=== PATIENT | female | born 1980 | race Caucasian/White ===

== ENCOUNTER → 2017-10-02 11:16 | Outpatient (CLI) | payer MEDICAID, SELFPAY ==
[2017-10-02 11:40] LABS: Basophils % 0.5 % (0.1-2.0); Eosinophils # 0.1 K/mm3 (0.0-0.4); Eosinophils % 1.4 % (0.1-12.0); Hematocrit 41.4 % (37.0-47.0); Hemoglobin 13.9 g/dL (12.2-16.2); Lymphocytes # 1.5 K/mm3 (0.7-4.5); Lymphocytes % 20.2 K/mm3 (10-50); Mean Corpuscular HGB Conc 33.5 g/dL (31.8-35.4); Mean Corpuscular Hemoglobin 31.1 pg (27.0-31.2); Mean Corpuscular Volume 92.8 fl (81-99); Mean Platelet Volume 8.5 fl (7.4-10.4); Monocytes # 0.4 K/mm3 (0.1-1.0); Monocytes % 4.9 % (1.7-9.3); Neutrophils # 5.4 K/mm3 (1.8-7.8); Platelet Count 258 K/mm3 (142-424); Red Blood Count 4.46 M/mm3 (4.20-5.40); Red Cell Distribution Width 12.7 % (11.5-17.5); White Blood Count 7.4 K/mm3 (4.8-10.8)
[2017-10-02 12:38] LABS: Alanine Aminotransferase 21 U/L (12-78); Albumin Level 3.4 gm/dL (3.4-5.0); Albumin/Globulin Ratio 0.9 (1.1-1.8); Alkaline Phosphatase 63 U/L (46-116); Anion Gap 8.2 mEq/L (5-15); Aspartate Amino Transferase 8 U/L (15-37); Bilirubin,Total 0.3 mg/dL (0.2-1.0); Blood Urea Nitrogen 15 mg/dL (7-18); Carbon Dioxide 30 mmol/L (21.0-32.0); Chloride 104 mmol/L (98-107); Cholesterol 199 mg/dL (140-200); Creatinine,Serum 1.02 mg/dL (0.55-1.02); Estimated Glomerular Filt Rate 62 ml/min (>60); GFR (African American) 75 ML/MIN (>60); Globulin 3.6 gm/dl (1.3-3.2); Glucose 87 mg/dL (74-106); HDL Cholesterol 67 mg/dL (29-89); LDL Cholesterol 112 mg/dL (0-130); Potassium 5.2 mmoL/L (3.5-5.1); Sodium 137 mmol/L (136-145); Triglycerides 100 mg/dL (30-200); VLDL Cholesterol 20 mg/dL (0-40)
== END ==
PROVIDERS: Visit Provider Nurse Practitioner Family
DX: Z00.00 Encounter for general adult medical examination without abnormal findings (principal); D50.9 Iron deficiency anemia, unspecified
CPT/HCPCS: 36415; 80053; 80061; 85025

== ENCOUNTER → 2018-07-30 07:46 | Outpatient (CLI) | payer MEDICAID, SELFPAY ==
--- NOTE | 2018-07-30 07:50 | CA_ITS ---
PROCEDURE: INDICATIONS FOR THE TEST: Chest pain COPD Heart Murmur Tobacco Smoking Palpitations Fatigue Syncope Edema+ Hypertension Diabetes Mellitus Rheumatic Fever SOB ROMERO Obesity Hyperlipidemia Family History HD Additional History PATIENT INFORMATION HEIGHT: 63 WEIGHT:63 GENDER: Female B/P:142/74 2-D/M-MODE INTERPRETATION: 2-D MEASUREMENTS OBSERVED VALUES IN CMS Right Ventricular Dimension (RVDd) 2.1 Interventricular Septum (Thickness)(IVsd) 1.0 Left Ventricular Internal Dimensions(LVIDd) 5.4 Left Ventricular Posterior Wall (Thickness)(LVPWd) 0.9 Aortic Root 2.3 Aortic Cusp Separation 2.1 Left Atrial Dimensions (LAD) 3.5 2D 1. Left atrium is normal size, left ventricle is normal size, there is no concentric left ventricular hypertrophy, visually estimated ejection fraction 55% with no regional wall motion abnormality. 2. The right atrium and right ventricle are normal size and contractility. 3. The aortic, mitral and tricuspid valvular grossly normal. 4. The pulmonic valve is poorly visualized. 5. No significant pericardial effusion noted. DOPPLER INTERROGATION: Doppler interrogation of the aortic, mitral and tricuspid valvular presence of trace mitral and tricuspid regurgitation of no hemodynamic significance, diastolic parameters are within normal range. CONCLUSION: 1.Normal left ventricular size, preserved left ventricular systolic function, visually estimated ejection fraction 55% with no regional wall motion abnormality, diastolic parameters are within normal range. 2. Trace mitral and tricuspid regurgitation 3. No significant pericardial effusion noted.
== END ==
PROVIDERS: PCP Internal Medicine Adolescent Medicine; Visit Provider Nurse Practitioner Family
DX: I34.0 Nonrheumatic mitral (valve) insufficiency (principal); R60.0 Localized edema
CPT/HCPCS: 93306

== ENCOUNTER 2019-07-27 08:00 | Outpatient (RCR) | payer OTHER, SELFPAY ==
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
--- NOTE | 2019-07-09 15:06 | HMH.RHREAS ---
Rehab Reassessment Rehab OP Re-assessment Start: 07/09/19 14:59 Freq: Status: Active Protocol: Document 07/09/19 14:59 IRLANDA (Rec: 07/09/19 15:06 IRLANDA [id number]) Electronically Signed By Theron Norwood, PT 07/09/19 14:59 Rehab Re-assessment Subjective Subjective PT TEMP AT ARRIVAL 98.2F PT REPORTS 1-2/10 NECK PAIN ON VAS, HOWEVER, 'I THOUGHT I WAS ALL FIXED, BUT IT STARTED TO COME BACK A COUPLE DAYS AGO '. Objective Objective Notes CROM: FLX 0-45, EXT 0-45, B SB 0-50, B ROT 0-60 MMT: B UE WFL TTP: L UT 2-3/4, B CERVICAL PARA MM 1-2/4 Assessment Progress Assessment Progressing as Expected Assessment Notes PT WITH IMPROVED CROM Patient goals met STG'S 2/2 LTG'S 04/25 Goals Not Met LTG'S 09/22 Plan Plan PT TO CONT. W/SKILLED P.T. TO MAKE FURTHER IMPROVEMENTS IN CROM, AND TTP TO ALLOW FOR OPTIMAL FUNCTION Frequency of Therapy 2-3X/WK Duration of therapy 3-4 WKS Time and Billing Re-Eval Time 15 Re-Eval Billing Units 1 PHYSICIAN CERTIFICATION: I certify the specified therapy services for [place] are required, authorized, and reviewed every 30 days.
== END 2019-07-27 08:05 | disposition home or self-care (01) ==
LOC: PT 08:00
PROVIDERS: Visit Provider Internal Medicine Adolescent Medicine
DX: M54.2 Cervicalgia (principal); S13.4XXA Sprain of ligaments of cervical spine, initial encounter
CPT/HCPCS: 20560; 97010; 97014; 97035; 97110; 97163; 97164; G0283

== ENCOUNTER → 2019-09-06 11:16 | Outpatient (CLI) | payer OTHER, SELFPAY ==
[2019-09-06 13:47] LABS: Alanine Aminotransferase 13 U/L (12-78); Albumin/Globulin Ratio 1.2 (1.1-1.8); Alkaline Phosphatase 93 U/L (38-126); Anion Gap 12.9 mEq/L (5-15); Aspartate Amino Transferase 15 U/L (14-36); Bilirubin,Total 0.3 mg/dl (0.2-1.3); Blood Urea Nitrogen 13 mg/dl (7-17); Calcium 9.2 mg/dl (8.4-10.2); Carbon Dioxide 28 mmol/L (22.0-30.0); Chloride 103 mmol/L (98-107); Chol/HDL Ratio 3.2 (1-3.5); Cholesterol 236 mg/dl (140-200); Estimated Glomerular Filt Rate 62 ml/min (>60); GFR (African American) 75 ML/MIN (>60); Globulin 3.4 g/dL (1.3-3.2); Glucose 92 mg/dl (74-100); HDL Cholesterol 74 mg/dl (40-60); Potassium 4.9 mmoL/L (3.5-5.1); Sodium 139 mmol/L (136-145); Total Protein,Serum 7.4 g/dl (6.3-8.2); Triglycerides 151 mg/dl (30-150); VLDL Cholesterol 30 mg/dL (0-40)
== END ==
PROVIDERS: Visit Provider Nurse Practitioner Family
DX: Z00.00 Encounter for general adult medical examination without abnormal findings (principal); Z68.42 Body mass index [BMI] 45.0-49.9, adult
CPT/HCPCS: 36415; 80053; 80061

== ENCOUNTER 2019-09-08 17:18 | Emergency (ER) | payer OTHER, SELFPAY ==
[2019-09-08 17:18] VITALS: BP 141/95; PULSE 112; RESP 18; TEMP 36.8; O2SAT 98; BMI 48.3
--- NOTE | 2019-09-08 17:56 | HMH.EDUTC ---
[facility] [place] Disposition Clinical Impression: Nummular eczema Disposition: Home, Self-Care Condition on Discharge: Good Instructions: Contact Dermatitis Additional Instructions: Don't apply the triamcinolone cream to your face or groin area. The Ketoconozole shampoo is for your scalp. Don't start the oral steroids (medrol dose pack) until tomorrow. Follow up with your regular doctor. Follow up with the heel dipper as scheduled. Call and see if you can get the appointment moved closer. GO TO THE ER FOR ANY WORSENING SYMPTOMS OR CONCERNS Prescriptions: methylPREDNISolone [Medrol] 4 mg PO DIRECTED 6 Days #21 tab.ds.pk Transmission Status: Received by [id number] Ketoconazole [Nizoral A-D] 1 applicatio TP WEEKLY 14 Days #1 bottle Transmission Status: Received by [id number] Triamcinolone Acetonide 1 applicatio TP TIDP PRN 7 Days #1 tube PRN Reason: Itching Transmission Status: Received by [id number] Referrals: Dimitri Pal MD [Primary Care Provider] - Time of Disposition: 18:06 Medical Decision Making - Medical Records Medical records reviewed: No: I reviewed the patient's medical records. - Kirk Inquiry Pt receiving controlled substance: No Vital Signs: 09/08/19 17:18 09/08/19 18:11 Temperature 98.2 F 98.2 F Temperature Source Oral Pulse Rate 112 H Pulse Rate [Right Radial] 112 H Respiratory Rate 18 18 Blood Pressure 141/95 H Blood Pressure [Right Arm] 141/95 H Blood Pressure Mean [Right Arm] 110 Blood Pressure Source [Right Arm] Automatic Cuff Blood Pressure Position [Right Arm] Sitting 02 Sat by Pulse Oximetry 98 Oxygen Delivery Method Room Air Orders (Tests/Meds): ED MEDICATIONS Discontinued Medications Generic Name Dose Route Start Last Admin Trade Name Freq PRN Reason Stop Dose Admin Methylprednisolone Sodium Succinate 125 mg 09/08/19 17:56 09/08/19 18:06 Solu-Medrol 125mg/2ml Vial IM 09/08/19 17:57 125 mg ONCE ONE Administration Medical Decision Narrative: After recieving the Solumedrol injection, she had a vagal response. This lasted for approx 20 minutes. her legs were propped up and she returned to normal. She denied any chest pain or shortness of breat. [facility] [place] HPI - General Stated complaint: rash Time Seen by Provider: 09/08/19 17:20 Mode of Arrival: Ambulatory Source of Information: Patient Limitations: No Limitations Description of Symptoms (Recalled from Triage Doc. by RN): PT C/O A RASH THAT HAS WORSENED OVER THE LAST MONTH HEENT Symptoms (Recalled from RN notes): No Resp Symptoms (Recalled from RN notes): No Skin Symptoms (Recalled from RN notes): Yes (RASH) MS Symptoms (Recalled from RN notes): No Functional Status (Recalled from RN notes): N/A - History of Present Illness Provider Complaint: She c/o having a rash on both her legs, upper arms and scalp for the past 1 week apprx. She has saw her pcp and she was prescribed a cream for a fungal infection, but her insurance would not pay for it. She has an appt with dermatology, but it is not until 1 month away. - Related Data Home Medications Medication Instructions Recorded Confirmed escitalopram oxalate 20 mg tablet 20 mg PO ONCE 07/28/17 05/04/19 Previous Rx's Medication Instructions Recorded norgestimate 0.25 mg-ethinyl 1 tab PO ONCE #84 tab 05/04/19 estradiol 35 mcg tablet metronidazole 500 mg tablet 500 mg PO BID #10 tab 06/02/19 Ketoconazole [Nizoral A-D] 1 applicatio TP WEEKLY 14 Days #1 09/08/19 bottle Triamcinolone Acetonide 1 applicatio TP TIDP PRN 7 Days #1 09/08/19 tube methylPREDNISolone [Medrol] 4 mg PO DIRECTED 6 Days #21 09/08/19 tab.ds.pk Allergies Allergy/AdvReac Type Severity Reaction Status Date / Time No Known Allergies Allergy Verified 05/04/19 14:20 - Worker's Comp Is this a Worker's Comp case?: No [facility] History - Hepatitis A Screen Drug use history?: No High risk sexual behaviors?:
[2019-09-08 18:11] VITALS: BP 141/95; PULSE 112; RESP 18; TEMP 36.8; O2SAT 98
--- NOTE | 2019-09-08 18:15 | PC.NURSE ---
PT WAS READY TO BE D/C, SHE BEGAN FEELING FAINT AFTER HER INJECTION. PT REQUESTS TO SIT DOWN IN CHAIR IN ROOM WITH A COOL RAG UNTIL FEELING BETTER. V/S ASSESSED, BP FOUND TO BE SOMEWHAT LOW... 78/49... AFTER SITTING FOR A FEW MINUTES, B/O ISMAEL TO 100/72.
--- NOTE | 2019-09-08 18:40 | PC.NURSE ---
PT STILL SITTING IN CHAIR IN ROOM. PT STATES THAT SHE IS FEELING SOMEWHAT BETTER, BUT STILL A LITTLE LIGHTHEADED. PT TEXTING ON HER PHONE AT THIS TIME.
--- NOTE | 2019-09-08 19:30 | PC.NURSE ---
PT STATES THAT SHE NOW FEELS BETTER TO GO HOME. BP IS 115/94. PT BEING D/C AT THIS TIME.
== END 2019-09-08 19:30 | disposition home or self-care (01) ==
PROVIDERS: Emergency Provider Nurse Practitioner Family; PCP Internal Medicine Adolescent Medicine
DX: L30.0 Nummular dermatitis (principal); F41.8 Other specified anxiety disorders
CPT/HCPCS: 96372; 99201

== ENCOUNTER → 2020-08-25 18:01 | Outpatient (CLI) | payer OTHER, SELFPAY ==
[2020-08-25 18:16] LABS: Basophils % 0.1 % (0.1-2.0); Hematocrit 36.7 % (37.0-47.0); Hemoglobin 11.7 g/dL (12.2-16.2); Lymphocytes # 2.6 K/mm3 (0.7-4.5); Lymphocytes % 29.9 % (10-50); Mean Corpuscular Hemoglobin 24.9 pg (27.0-31.2); Mean Corpuscular Volume 77.7 fl (81-99); Mean Platelet Volume 9.1 fl (7.4-10.4); Monocytes # 0.4 K/mm3 (0.1-1.0); Neutrophils # 5.7 K/mm3 (1.8-7.8); Platelet Count 342 K/mm3 (142-424); Red Blood Count 4.72 M/mm3 (4.20-5.40); Red Cell Distribution Width 14.9 % (11.5-17.5); White Blood Count 8.8 K/mm3 (4.8-10.8)
[2020-08-25 18:23] LABS: Chloride 103 mmol/L (98-107); Potassium 4.3 mmoL/L (3.5-5.1); Sodium 138 mmol/L (136-145)
[2020-08-25 18:25] LABS: Alanine Aminotransferase 13 U/L (12-78); Alkaline Phosphatase 96 U/L (38-126); Aspartate Amino Transferase 22 U/L (14-36); Bilirubin,Total 0.4 mg/dl (0.2-1.3); Blood Urea Nitrogen 16 mg/dl (7-17); Estimated Glomerular Filt Rate 62 ml/min (>60); GFR (African American) 75 ML/MIN (>60)
[2020-08-25 18:26] LABS: Albumin Level 4.4 g/dl (3.5-5.0); Albumin/Globulin Ratio 1.4 (1.1-1.8); Anion Gap 16.3 mEq/L (5-15); Calcium 8.8 mg/dl (8.4-10.2); Carbon Dioxide 23 mmol/L (22.0-30.0); Chol/HDL Ratio 2.8 (1-3.5); Cholesterol 232 mg/dl (140-200); Globulin 3.2 g/dL (1.3-3.2); Glucose 71 mg/dl (74-100); HDL Cholesterol 82 mg/dl (40-60); Total Protein,Serum 7.6 g/dl (6.3-8.2); Triglycerides 155 mg/dl (30-150); VLDL Cholesterol 31 mg/dL (0-40)
[2020-08-25 18:37] LABS: Direct LDL Cholesterol 122.47 mg/dL (100-129)
== END ==
PROVIDERS: Visit Provider Nurse Practitioner Family
DX: Z00.00 Encounter for general adult medical examination without abnormal findings (principal); I10 Essential (primary) hypertension; D50.9 Iron deficiency anemia, unspecified
CPT/HCPCS: 80053; 80061; 85025

== ENCOUNTER → 2021-05-23 16:24 | Outpatient (CLI) | payer OTHER, SELFPAY ==
[2021-05-23 17:41] LABS: Basophils % 0.4 % (0.1-2.0); Hematocrit 31.5 % (37.0-47.0); Hemoglobin 9.6 g/dL (12.2-16.2); Lymphocytes # 2.7 K/mm3 (0.7-4.5); Lymphocytes % 33.9 % (10-50); Mean Corpuscular HGB Conc 30.4 g/dL (31.8-35.4); Mean Corpuscular Hemoglobin 22.8 pg (27.0-31.2); Mean Corpuscular Volume 75.1 fl (81-99); Mean Platelet Volume 8.6 fl (7.4-10.4); Monocytes # 0.5 K/mm3 (0.1-1.0); Monocytes % 6.1 % (1.7-9.3); Neutrophils # 4.8 K/mm3 (1.8-7.8); Neutrophils % 59.6 % (37.0-80.0); Platelet Count 379 K/mm3 (142-424); Red Blood Count 4.19 M/mm3 (4.20-5.40); Red Cell Distribution Width 15.7 % (11.5-17.5); White Blood Count 8.1 K/mm3 (4.8-10.8)
[2021-05-23 18:14] LABS: Alanine Aminotransferase 17 U/L (12-78); Albumin/Globulin Ratio 1.4 (1.1-1.8); Alkaline Phosphatase 71 U/L (38-126); Anion Gap 12.8 mEq/L (5-15); Aspartate Amino Transferase 20 U/L (14-36); Bilirubin,Total 0.3 mg/dl (0.2-1.3); Blood Urea Nitrogen 16 mg/dl (7-17); Calcium 8.7 mg/dl (8.4-10.2); Carbon Dioxide 21 mmol/L (22.0-30.0); Chloride 107 mmol/L (98-107); Chol/HDL Ratio 2.9 (1-3.5); Cholesterol 229 mg/dl (140-200); Estimated Glomerular Filt Rate 80 ml/min (>60); GFR (African American) 97 ML/MIN (>60); Globulin 2.8 g/dL (1.3-3.2); Glucose 96 mg/dl (74-100); HDL Cholesterol 80 mg/dl (40-60); Potassium 4.8 mmoL/L (3.5-5.1); Sodium 136 mmol/L (136-145); Total Protein,Serum 6.8 g/dl (6.3-8.2); Triglycerides 130 mg/dl (30-150); VLDL Cholesterol 26 mg/dL (0-40)
[2021-05-23 18:24] LABS: Direct LDL Cholesterol 106.28 mg/dL (100-129)
[2021-05-23 18:30] LABS: Free Thyroxine Index 2.8 ug/dL (5.93-13.13); T4 (Thyroxine) 9.9 ug/dl (5.53-11.0); Triiodothryronine (T3) Uptake 28 % (23.5-40.5)
[2021-05-23 18:44] LABS: Thyroid Stimulating Hormone 1.34 uIU/mL (0.465-4.68)
[2021-05-23 19:40] LABS: Hemoglobin A1C 5.3 % (4.0-6.0)
== END ==
PROVIDERS: Visit Provider Internal Medicine Adolescent Medicine
DX: Z00.00 Encounter for general adult medical examination without abnormal findings (principal); Z13.1 Encounter for screening for diabetes mellitus; R55 Syncope and collapse
CPT/HCPCS: 36415; 80053; 80061; 83036; 83735; 84436; 84443; 84479; 85025

== ENCOUNTER → 2021-05-29 16:28 | Outpatient (CLI) | payer OTHER, SELFPAY ==
[2021-05-29 17:20] LABS: Hematocrit 30.3 % (37.0-47.0); Hemoglobin 9.4 g/dL (12.2-16.2)
[2021-05-29 17:40] LABS: Iron 22 ug/dL (37-170)
[2021-05-29 17:50] LABS: Total Iron Binding Capacity 444 ug/dL (265-497)
[2021-05-29 18:17] LABS: Ferritin 5.95 ng/ml (6.24-137)
[2021-05-29 18:31] LABS: Vitamin B12 255 pg/mL (239-931)
== END ==
PROVIDERS: Visit Provider Internal Medicine Adolescent Medicine
DX: D64.9 Anemia, unspecified (principal)
CPT/HCPCS: 36415; 82607; 82728; 83540; 83550; 85014; 85018

== ENCOUNTER → 2021-08-15 14:09 | Outpatient (CLI) | payer OTHER, SELFPAY | PROVIDERS: PCP Internal Medicine Adolescent Medicine; Visit Provider Surgery | DX: Z01.812 Encounter for preprocedural laboratory examination (principal); Z20.822 Contact with and (suspected) exposure to COVID-19; Z13.810 Encounter for screening for upper gastrointestinal disorder; Z12.11 Encounter for screening for malignant neoplasm of colon | CPT/HCPCS: C9803; U0003; U0005 ==

== ENCOUNTER 2021-08-17 08:08 | Day surgery (SDC) | payer OTHER, SELFPAY ==
[2021-08-15 13:33] VITALS: BMI 44.2
--- NOTE | 2021-08-17 07:37 | HMH.GSHP ---
HPI HPI: Patient is a 40-year-old female from [place] referred by Dr. Dimitri Pal for EGD and colonoscopy to evaluate anemia. She states that for several months, beginning January, she had developed some near syncopal episodes feeling like she needed to pass out. She also had some shortness of air. She does state that she underwent Hemoccult testing which was negative. She denies any melena or hematochezia. Blood work a few weeks ago revealed a hemoglobin of 9.4 with hematocrit of 30. Iron 22, total iron-binding capacity 444, iron saturation 4.954. Vitamin B12 level 255. She has never had a history of ulcer disease. Never had prior colonoscopy. [facility] History I have reviewed the patient's past medical history: Yes Medical History: Reports:: Anxiety, Depression, Hypertension Denies:: Cancer, Diabetes Mellitus Type 1, Diabetes Mellitus Type 2, Hyperlipidemia, Internal Pacemaker, Migraine, MRSA, Seizures *Have you ever received a pneumonia vaccine?: No *Have you received a flu vaccine this season?: No Other Surgeries: Yes: No Previous Surgery. No: Pacemaker Amputation: No Fractures: No - *Social History Last grade of school completed: High school graduate Smoking Status: Never smoker Alcohol Intake: never Alcohol Intake Frequency:: holidays/special occasions only Substance Use Type: denies use *Occupational Status:: employed Housing: house *Travel in the last 8 weeks: None - Psychiatric History Pschychiatric History:: Reports:: Anxiety, Depression Family Hx:: No significant family history Review of Systems - Review of Systems Review of systems:: pertinent systems reviewed and negative unless documented below Meds Home Medications Medication Instructions Recorded Confirmed Type lisinopril 20 mg tablet 20 mg PO DAILY 12/13/19 06/19/21 History ferrous sulfate 325 mg (65 mg 325 mg PO DAILY tab 06/19/21 06/19/21 History iron) tablet venlafaxine 150 mg 150 mg PO DAILY cap 06/19/21 06/19/21 History capsule,extended release 24 hr Ascorbic Acid [Vitamin C] 100 mg PO DAILY 08/15/21 08/15/21 History [id number]/Sod Sulf,Bicarb,Cl/KCl 240 ml PO ONCE 08/15/21 History [[id number] and Electrolytes Soln] norgestimate-ethinyl estradioL See Rx Instructions .ROUTE .COMPLEX 08/15/21 History [Previfem Tablet] Allergies Allergy/AdvReac Type Severity Reaction Status Date / Time No Known Allergies Allergy Verified 06/19/21 08:57 Exam I & O for Last 24 hours: Intake & Output 08/14/21 08/15/21 08/16/21 08/17/21 11:59 11:59 11:59 11:59 Weight 250 lb - Constitutional no acute distress - *Routine HEENT Exam Head: Present: normocephalic Eye: Present: EOMI, PERRL ENT: Present: mucous membranes moist - *Routine Neck Exam Present: supple. Absent: lymphadenopathy - *Routine Respiratory Exam Present: CTA bilaterally - *Routine Cardiovascular Exam Present: RRR - *Routine Abdominal Exam Present: soft, normoactive bowel sounds. Absent: tenderness - *Routine Rectal Exam Rectal:: deferred - *Routine Genitalia Exam Genitalia:: deferred - *Routine Extremities Exam Absent: cyanosis, clubbing, edema - *Routine Skin Exam Present: warm. Absent: rash - *Routine Neurological Exam Present: alert, oriented X3 Assessment and Plan - Assessment and plan all Dx Assessment and Plan for all problems:: Plan for EGD and colonoscopy to evaluate iron deficiency anemia.
[2021-08-17 08:24] VITALS: BP 147/78; PULSE 62; RESP 18; TEMP 36.7; O2SAT 100
--- NOTE | 2021-08-17 08:26 | P.PN_ITS ---
[facility] Anesthesia Checklist - Patient Identification Patient Identification: Arm Band - Structural Data Admitted From: Home Planned Operative Procedure/s: EGD/Colonoscopy Consent for Planned Operative Procedure(s) Verified: Yes - NPO Status Verified Time NPO: 00:00 - Airway Assessment C-Spine Mobility Assessed: Yes TMJ Mobility Assessed: Yes Dentition: Good Dentition - Neurological Assessment Level of Consciousness: Awake Hx Seizures: No Numbness or tingling in extremities: No - Anesthesia Plan Anesthesia Risk discussed: Yes Anesthesia Plan: Verified ASA Class: II Anesthesia Type: MAC [facility] History I have reviewed the patient's past medical history: Yes Medical History: Reports:: Anxiety, Depression, Hypertension Denies:: Cancer, Diabetes Mellitus Type 1, Diabetes Mellitus Type 2, Hyperlipidemia, Internal Pacemaker, Migraine, MRSA, Seizures *Have you ever received a pneumonia vaccine?: No *Have you received a flu vaccine this season?: No Anesthesia experience/problems:: None Other Surgeries: Yes: No Previous Surgery. No: Pacemaker Amputation: No Fractures: No - *Social History Last grade of school completed: High school graduate Smoking Status: Never smoker Alcohol Intake: never Alcohol Intake Frequency:: holidays/special occasions only Substance Use Type: denies use *Occupational Status:: employed Housing: house *Travel in the last 8 weeks: None - Psychiatric History Pschychiatric History:: Reports:: Anxiety, Depression Family Hx:: No significant family history
[2021-08-17 08:27] LABS: Urine Pregnancy, HCG Qual. Negative (Negative)
[2021-08-17 08:58] VITALS: O2SAT 98
[2021-08-17 09:37] VITALS: BP 115/73; PULSE 57; RESP 16; TEMP 36.8; O2SAT 100
--- NOTE | 2021-08-17 09:37 | HMH.SCOPE ---
- Procedure: Date: 08/17/21 Patient Date of :: 1980 Procedure Performed:: Esophagogastroduodenoscopy with biopsies Total colonoscopy to terminal ileum with polypectomy using biopsy forceps Indications:: Patient is a 41-year-old female from [place] referred by Dr. Dimitri Pal for EGD and colonoscopy to evaluate anemia. She states that for several months, beginning January, she had developed some near syncopal episodes feeling like she needed to pass out. She also had some shortness of air. She does state that she underwent Hemoccult testing which was negative. She denies any melena or hematochezia. Blood work revealed a hemoglobin of 9.4 with hematocrit of 30. Iron 22, total iron-binding capacity 444, iron saturation 4.954. Vitamin B12 level 255. She has never had a history of ulcer disease. Never had prior colonoscopy. Performing Provider:: Dominik Lima MD Referring Provider:: Dimitri Pal MD Sedation:: MAC sedation Procedure:: Patient was taken to endoscopy procedure room. She was positioned in lateral decubitus position. Adequate intravenous sedation was achieved with anesthesia titration propofol. Attention was first turned to upper endoscopy. Olympus endoscope was inserted via the oropharynx. Esophagus was cannulated. Overall esophagus appeared unremarkable. Gastroesophageal junction was encountered at approximately 40 cm from the incisors. Stomach was cannulated and insufflated. Retroflexion revealed no evidence of any appreciable hiatal hernia. There were findings of mild nonerosive diffuse gastropathy. Gastric antral biopsy was obtained for CLOtest for H. pylori. Pylorus was traversed. Duodenum appeared unremarkable. Endoscope was withdrawn into the distal stomach and antral biopsy was obtained for histopathologic analysis. Stomach was desufflated and endoscope was withdrawn. Next tension was turned to colonoscopy. Digital examination was performed which revealed normal sphincter tone. Variable stiffness Olympus colonoscope was inserted via the anus. Is advanced to the cecum. There was some particulate stool within the colon but adequate visualization was achieved with irrigation and suctioning. Ileocecal valve and appendiceal orifice were clearly identified. Colonoscope was advanced a generous distance into the terminal ileum which appeared grossly normal. Colonoscope was withdrawn through the colon with careful surveillance. Irrigation was performed as needed. In the rectosigmoid region there was a tiny diminutive hyperplastic appearing polyp removed with cold biopsy forceps. Retroflexion within the rectum revealed no evidence of any pathologic internal hemorrhoids. Colonoscope was withdrawn. Findings:: Gastroesophageal junction at 40 cm Mild diffuse nonerosive gastropathy Tiny diminutive hyperplastic appearing rectosigmoid polyp Recommendations:: No etiology for GI blood loss to account for iron deficiency anemia on upper endoscopy or colonoscopy. Likely recommend repeating colonoscopy in 5 or 6 years for screening. If GI blood loss etiology continues to be a concern may require small bowel evaluation with capsule endoscopy. Complications:: None immediately apparent Estimated blood obtained (mL): 1
[2021-08-17 09:47] VITALS: BP 122/66; PULSE 57; RESP 16; O2SAT 100
[2021-08-17 09:57] VITALS: BP 127/80; PULSE 53; RESP 16; O2SAT 100
[2021-08-17 10:07] VITALS: BP 136/78; PULSE 55; RESP 16; O2SAT 100
== END 2021-08-17 10:07 | disposition home or self-care (01) ==
LOC: OUTP 08:09
PROVIDERS: PCP Internal Medicine Adolescent Medicine; Visit Provider Surgery
PROC: 0DJ08ZZ Inspection of Upper Intestinal Tract, Via Natural or Artificial Opening Endoscopic (ICD-10-PCS; CPT 43235; principal; 2021-08-17 09:30)
DX: D64.9 Anemia, unspecified (principal); R55 Syncope and collapse; R06.02 Shortness of breath; D12.7 Benign neoplasm of rectosigmoid junction; K29.60 Other gastritis without bleeding
CPT/HCPCS: 45380; 43239; 81025; 87339

== ENCOUNTER 2022-06-29 12:29 | Emergency (ER) | payer OTHER, SELFPAY ==
[2022-06-29 12:35] VITALS: BP 162/90; PULSE 70; RESP 20; TEMP 36.6; O2SAT 99; BMI 40.9
--- NOTE | 2022-06-29 12:44 | EXP.UTC ---
Discharge Plan Disposition Patient Disposition: Home, Self-Care Condition: Good Prescriptions Prescriptions: New doxycycline hyclate 100 mg capsule 100 mg PO BID 10 Days Qty: 20 0RF No Action lisinopril 20 mg tablet 20 mg PO DAILY venlafaxine 150 mg capsule,extended release 24hr 150 mg PO DAILY ferrous sulfate 325 mg (65 mg iron) tablet 325 mg PO DAILY norgestimate-ethinyl estradiol 1 EACH tablet See Rx Instructions .Route .COMPLEX Rx Instructions: TAKE 1 TABLET BY MOUTH EVERY DAY Referrals Follow up/Referrals: Dimitri Pal MD [Primary Care Provider] - See instructions Clinical Impressions Clinical Impression: Sinusitis, acute, maxillary Discharge ED [place]e Estrada [facility] [place] General Stated complaint: Congestion, drainage, sinus pressure Time Seen by Provider: 06/29/22 12:42 History of Present Illness Provider Complaint: Pt states that for the last 2 weeks she has been struggling with sinus pressure, pain, and yellow-green drainage. She states that she has had a strong dry cough. She states that she has taken some Claritin but that it has not resolved her symptoms. Related Data Home Medications Medication Instructions Recorded Confirmed lisinopril 20 mg tablet 20 mg PO DAILY Hypertension 12/13/19 06/29/22 ferrous sulfate 325 mg (65 mg 325 mg PO DAILY Supplement 06/19/21 06/29/22 iron) tablet venlafaxine 150 mg 150 mg PO DAILY Anxiety 06/19/21 06/29/22 capsule,extended release 24 hr norgestimate 0.25 mg-ethinyl See Rx Instructions .Route 08/15/21 06/29/22 estradiol 35 mcg tablet .COMPLEX control Previous Rx's Medication Instructions Recorded doxycycline hyclate 100 mg capsule 100 mg PO BID 10 days #20 caps 06/29/22 Allergies Allergy/AdvReac Type Severity Reaction Status Date / Time No Known Allergies Allergy Verified 09/04/21 09:38 [facility] Disclaimer: The information contained in this section may have been updated after the patient was seen, as this information can be updated by other users. Social History Smoking Status: Never smoker alcohol intake: never substance use type: denies use current occupational status: employed Travel in the last 8 weeks: None housing: house current occupation: horse farm caffeine: Yes ROS Obtained: Yes All systems reviewed & no additional complaints except as documented Constitutional Constitutional: Reports system reviewed and no additional complaints, except as documented and Reports headache(s) Eyes Eyes: Reports system reviewed and no additional complaints, except as documented ENT Ears, Nose, Mouth, and Throat: Reports system reviewed and no additional complaints, except as documented, Reports facial pain, Reports headache(s), Reports nasal congestion, Reports nasal discharge, Reports sinus pain and Reports sinus pressure Cardiovascular Cardiovascular: Reports system reviewed and no additional complaints, except as documented Respiratory Respiratory: Reports system reviewed and no additional complaints, except as documented and Reports non-productive cough Gastrointestinal Gastrointestingal: Reports system reviewed and no additional complaints, except as documented Genitourinary Female Genitourinary: Reports system reviewed and no additional complaints, except as documented Musculoskeletal Musculoskeletal: Reports system reviewed and no additional complaints, except as documented Integumentary/Breasts Skin/Breast: Reports system reviewed and no additional complaints, except as documented Neurologic Neurologic: Reports system reviewed and no additional complaints, except as documented and Reports headache(s) Endocrine Endocrine: Reports system reviewed and no additional complaints, except as documented Hematologic/Lymphatic Henatologic/Lymphatic: Reports system reviewed and no additional complaints, except as documented Allergic/Immunologic Allergic/Immunologic
[2022-06-29 12:58] VITALS: BP 162/90; PULSE 70; RESP 20; TEMP 36.6; O2SAT 99
== END 2022-06-29 13:03 | disposition home or self-care (01) ==
PROVIDERS: Emergency Provider Nurse Practitioner Family; PCP Internal Medicine Adolescent Medicine
DX: J01.00 Acute maxillary sinusitis, unspecified (principal)
CPT/HCPCS: 99204; 99212; 99214; G0463

== ENCOUNTER → 2022-10-19 09:46 | Outpatient (CLI) | payer OTHER, SELFPAY ==
[2022-10-19 10:04] LABS: Basophils % 0.3 % (0.1-2.0); Eosinophils # 0.1 K/mm3 (0.0-0.4); Hematocrit 41.2 % (37.0-47.0); Lymphocytes # 2.3 K/mm3 (0.7-4.5); Lymphocytes % 28.7 % (10-50); Mean Corpuscular HGB Conc 33.9 g/dL (31.8-35.4); Mean Corpuscular Hemoglobin 30.6 pg (27.0-31.2); Mean Corpuscular Volume 90.3 fl (81-99); Mean Platelet Volume 8.6 fl (7.4-10.4); Monocytes # 0.4 K/mm3 (0.1-1.0); Monocytes % 4.6 % (1.7-9.3); Neutrophils # 5.3 K/mm3 (1.8-7.8); Neutrophils % 65.4 % (37.0-80.0); Platelet Count 289 K/mm3 (142-424); Red Blood Count 4.56 M/mm3 (4.20-5.40); Red Cell Distribution Width 13.8 % (11.5-17.5); White Blood Count 8.1 K/mm3 (4.8-10.8)
[2022-10-19 10:52] LABS: Alanine Aminotransferase 16 U/L (12-78); Albumin Level 3.8 g/dl (3.5-5.0); Albumin/Globulin Ratio 1.3 (1.1-1.8); Alkaline Phosphatase 74 U/L (38-126); Anion Gap 9.9 mEq/L (5-15); Aspartate Amino Transferase 18 U/L (14-36); Bilirubin,Total 0.3 mg/dl (0.2-1.3); Blood Urea Nitrogen 14 mg/dl (7-17); Calcium 8.9 mg/dl (8.4-10.2); Carbon Dioxide 28 mmol/L (22.0-30.0); Chloride 107 mmol/L (98-107); Chol/HDL Ratio 2.7 (1-3.5); Cholesterol 217 mg/dl (140-200); Estimated Glomerular Filt Rate 61 ml/min (>60); GFR (African American) 74 ML/MIN (>60); Glucose 91 mg/dl (74-100); HDL Cholesterol 80 mg/dl (40-60); Potassium 4.9 mmoL/L (3.5-5.1); Sodium 140 mmol/L (136-145); Total Protein,Serum 6.8 g/dl (6.3-8.2); Triglycerides 159 mg/dl (30-150); VLDL Cholesterol 32 mg/dL (0-40)
[2022-10-19 11:10] LABS: 25-OH Vitamin D, Total 34.2 ng/mL (30-100)
[2022-10-19 11:23] LABS: Thyroid Stimulating Hormone 1.55 uIU/mL (0.465-4.68)
[2022-10-19 11:42] LABS: Vitamin B12 297 pg/mL (239-931)
== END ==
PROVIDERS: PCP Internal Medicine Adolescent Medicine; Visit Provider Nurse Practitioner Family
DX: R53.83 Other fatigue (principal); E53.8 Deficiency of other specified B group vitamins; E78.2 Mixed hyperlipidemia; E66.9 Obesity, unspecified; Z68.42 Body mass index [BMI] 45.0-49.9, adult
CPT/HCPCS: 36415; 80053; 80061; 82306; 82607; 84443; 85025

== ENCOUNTER → 2022-11-11 15:21 | Outpatient (CLI) | payer OTHER, SELFPAY ==
--- NOTE | 2022-11-11 15:24 | MM_ITS ---
PROCEDURE INFORMATION: Exam: Bilateral Screening 3D Mammography Exam date and time: 11/11/2022 3:17 PM Age: 42 years old Clinical indication: Baseline. No family history of breast cancer. TECHNIQUE: Imaging protocol: Bilateral Screening tomosynthesis and 2D mammography including computer-aided detection (CAD) when performed. COMPARISON: No relevant prior studies available. FINDINGS: MAMMOGRAPHY: Breast composition: There are scattered areas of fibroglandular density. Mass: None. Architectural distortion: None. Calcifications: No suspicious calcifications. Asymmetric density: None. Skin thickening: None. Axillary adenopathy: None. IMPRESSION: No mammographic evidence of malignancy. Annual screening is recommended unless otherwise clinically indicated. ASSESSMENT: BI-RADS Category 1: Negative
== END ==
PROVIDERS: PCP Internal Medicine Adolescent Medicine; Visit Provider Nurse Practitioner Family
DX: Z12.31 Encounter for screening mammogram for malignant neoplasm of breast (principal)
CPT/HCPCS: 77063; 77067

== ENCOUNTER → 2022-11-14 17:09 | Outpatient (CLI) | payer OTHER, SELFPAY | PROVIDERS: PCP Nurse Practitioner Family; Visit Provider Nurse Practitioner Family | DX: G47.30 Sleep apnea, unspecified (principal); R06.83 Snoring; E66.01 Morbid (severe) obesity due to excess calories | CPT/HCPCS: 95806 ==

== ENCOUNTER 2023-07-06 08:04 | Emergency (ER) | payer OTHER, SELFPAY ==
[2023-07-06 08:10] VITALS: BP 155/94; PULSE 125; RESP 18; TEMP 36.9; O2SAT 96; BMI 44.1
[2023-07-06 08:34] LABS: UTC Influenza A Antigen Negative (Negative); UTC Influenza B Antigen Negative (Negative)
[2023-07-06 08:35] LABS: UTC Strep Screen (Rapid) Negative (Negative)
--- NOTE | 2023-07-06 09:03 | EXP.UTC ---
Discharge Plan Disposition Patient Disposition: Home, Self-Care Condition: Good Prescriptions Prescriptions: New azithromycin [Zithromax] 250 mg tablet 250 mg PO UD DOSE PK Qty: 6 0RF Rx Instructions: Take two (2) tablets today, then one (1) tablet days #2 thru #5 benzonatate 100 mg capsule 100 mg PO TIDP PRN (Reason: Cough) Qty: 30 0RF methylprednisolone 4 mg Tablets,Dose Pack 4 mg PO DIRECTED 6 Days Qty: 21 0RF Rx Instructions: Take 1 pack as directed for 6 days No Action lisinopril 20 mg tablet 20 mg PO DAILY venlafaxine 150 mg capsule,extended release 24hr 150 mg PO DAILY ferrous sulfate 325 mg (65 mg iron) tablet 325 mg PO DAILY cetirizine 10 mg Tablet 10 mg PO DAILY Referrals Follow up/Referrals: Dimitri Pal MD [Primary Care Provider] - See instructions Activity Restrictions/Add. Instructions Additional Instructions/Restrictions: Drink plenty of fluids. Take tylenol or ibuprofen for pain or fever. Take the medications as directed. Follow up with your regular doctor. GO TO THE ER FOR ANY WORSENING SYMPTOMS Clinical Impressions Clinical Impression: Pharyngitis, Viral pharyngitis Stand Alone Forms Stand Alone Forms: Work/School Release Instructions Patient Instructions: Sore Throat, DI for Pharyngitis/Tonsillopharyngitis -- Adult, DI for Viral Syndrome Discharge ED Provider: Ren Green [facility] General Stated complaint: sore throat, body aches, headache Mode of Arrival: Ambulatory Source of Information: Patient Limitations: No Limitations Time Seen by Provider: 07/06/23 09:03 Description of Symptoms (Recalled from Triage Doc. by RN): Pt's symptoms are sore throat, BAILEY, body aches, and fatigue. HEENT Symptoms (Recalled from RN notes): Yes Resp Symptoms (Recalled from RN notes): No Skin Symptoms (Recalled from RN notes): No MS Symptoms (Recalled from RN notes): No Functional Status (Recalled from RN notes): n/a History of Present Illness Provider Complaint: She states that for the past 2 days she has had sore throat, bailey, body aches, fatigue and malaise. She has had fever up to 101. Related Data Home Medications Medication Instructions Recorded Confirmed lisinopril 20 mg tablet 20 mg PO DAILY Hypertension 12/13/19 07/06/23 ferrous sulfate 325 mg (65 mg 325 mg PO DAILY Supplement 06/19/21 07/06/23 iron) tablet venlafaxine 150 mg 150 mg PO DAILY Anxiety 06/19/21 07/06/23 capsule,extended release 24 hr cetirizine 10 mg tablet 10 mg PO DAILY allergies 07/06/23 07/06/23 Previous Rx's Medication Instructions Recorded azithromycin 250 mg tablet 250 mg PO UD DOSE PK #6 tabs 07/06/23 (Zithromax) benzonatate 100 mg capsule 100 mg PO TIDP PRN Cough #30 caps 07/06/23 methylprednisolone 4 mg tablets in 4 mg PO DIRECTED 6 days #21 tabs 07/06/23 a dose pack Allergies Allergy/AdvReac Type Severity Reaction Status Date / Time No Known Allergies Allergy Verified 07/06/23 08:20 Worker's Comp Is this a Worker's Comp case?: No [facility] Disclaimer: The information contained in this section may have been updated after the patient was seen, as this information can be updated by other users. 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[employer] caffeine: Yes ROS Obtained: Yes All systems reviewed & no additional complaints except as documented Constitutional Constitutional: Reports chills and Reports fever(s) Eyes Eyes: Denies eye discharge ENT Ears, Nose, Mouth, and Throat: Reports as per HPI Cardiovascular Cardiovascular: Denies chest pain Respiratory Respiratory: Denies chest congestion and Reports cough Gastrointestinal Gastrointestingal: Reports nausea; Denies abdominal pain, constipation, cramping, diarrhea or vomiting Musculoskeletal Musculoskeletal: Denies arthralgias Integumentary/Breasts Skin/Breast: Denies rash Neurologic Neurologic: Denies paresthesias Physical Exam General General appearance: alert and in no apparent distress Head Head exam: atraumatic, normocephalic and normal inspection Eye Eye exam: Present normal appearance, PERRL and EOMI ENT ENT exam: Present mucous membranes moist and normal external ear exam Expanded ENT Exam TM/Canal exam: Bilateral TM: erythema and bulging Nose exam: Absent sinus tenderness Mouth exam: Present normal external inspection; Absent drooling Teeth exam: Present normal inspection Throat exam: Present tonsillar erythema, tonsillomegaly and tonsillar exudate Neck Neck exam: Present normal inspection, full ROM and trachea midline; Absent tenderness, meningismus or lymphadenopathy Chest Chest inspection: Present normal inspection and symmetric chest wall rise; Absent tenderness Respiratory Respiratory exam: Present normal lung sounds bilaterally; Absent respiratory distress, wheezes or stridor Cardiovascular Cardiovascular exam: Present regular rate and normal rhythm; Absent systolic murmur or diastolic murmur Abdominal Exam Abdominal exam: Present soft and normal bowel sounds; Absent distention, tenderness, guarding, rebound or rigidity Extremities Exam Extremities exam: Present normal inspection and normal capillary refill; Absent calf tenderness Back Exam Back exam: Present normal inspection and full ROM; Absent tenderness, CVA tenderness (R) or CVA tenderness (L) Neurological Exam Neurological exam: Present alert, oriented X3 and CN II-XII intact Psychiatric Psychiatric exam: Present normal affect and normal mood Skin Skin exam: Present warm, dry, intact and normal color Medical Decision Making Medical Records Medical records reviewed: No I reviewed the patient's medical records. Kirk Inquiry Pt receiving controlled substance: No Vital Signs: 07/06/23 08:10 Temperature 98.4 F Temperature Source Oral Pulse Rate [Right Radial] 125 H Respiratory Rate 18 Blood Pressure [Right Arm] 155/94 H Blood Pressure Mean [Right Arm] 114 Blood Pressure Source [Right Arm] Automatic Cuff Blood Pressure Position [Right Arm] Sitting 02 Sat by Pulse Oximetry 96 Oxygen Delivery Method Room Air Lab Data Lab results reviewed: Yes I reviewed the patient's lab results. Lab Results 07/06/23 08:21: Strep Scn Rapid Clinic Negative 07/06/23 08:22: Influenza Type A Ag Negative, Influenza Type B Ag Negative Orders (Tests/Meds): ORDERS Category Date Time Status Strep Screen Confirmation Stat Micro 07/06/23 08:21 Received
--- NOTE | 2023-07-06 09:27 | PC.NURSE ---
sent up a rapid covid and flu at 9:27
[2023-07-06 09:28] VITALS: BP 155/94; PULSE 125; RESP 18; TEMP 36.9; O2SAT 96
[2023-07-06 09:30] LABS: Coronavirus 19, PCR Not Detected (NotDetected); Influenza A, PCR Not Detected (NotDetected); Influenza B, PCR Not Detected (NotDetected)
== END 2023-07-06 09:28 | disposition home or self-care (01) ==
PROVIDERS: Emergency Provider Nurse Practitioner Family; PCP Internal Medicine Adolescent Medicine
DX: J02.9 Acute pharyngitis, unspecified (principal); B34.9 Viral infection, unspecified; R50.9 Fever, unspecified; R51.9 Headache, unspecified; I10 Essential (primary) hypertension; E78.5 Hyperlipidemia, unspecified
CPT/HCPCS: 87636; 87804; 87880; 99212; 99214; G0463

== ENCOUNTER 2023-11-09 12:13 | Emergency (ER) | payer OTHER, SELFPAY ==
[2023-11-09 12:50] VITALS: BP 162/95; PULSE 77; RESP 16; TEMP 36.8; O2SAT 100; BMI 40.7
--- NOTE | 2023-11-09 12:52 | EXP.UTC ---
Discharge Plan Disposition Patient Disposition: Home, Self-Care Condition: Good Prescriptions Prescriptions: New benzonatate 100 mg capsule 100 mg PO TIDP PRN (Reason: Cough) Qty: 30 0RF ondansetron 4 mg Tablet,Disintegrating 4 mg PO Q8H PRN (Reason: Nausea) Qty: 12 0RF No Action lisinopril 20 mg tablet 20 mg PO DAILY venlafaxine 150 mg capsule,extended release 24hr 150 mg PO DAILY ferrous sulfate 325 mg (65 mg iron) tablet 325 mg PO DAILY cetirizine 10 mg Tablet 10 mg PO DAILY Referrals Follow up/Referrals: Dimitri Pal MD [Primary Care Provider] - See instructions Activity Restrictions/Add. Instructions Additional Instructions/Restrictions: Drink plenty of fluids. Take tylenol or ibuprofen for pain or fever. Take the medications as directed. Follow up with your regular doctor. GO TO THE ER FOR ANY WORSENING SYMPTOMS Clinical Impressions Clinical Impression: Acute viral syndrome Stand Alone Forms Stand Alone Forms: Work/School Release Instructions Patient Instructions: Coronavirus Disease 2019, Preventing the Spread of Coronavirus Discharge Instructions Print Language Print Language: Thai Discharge ED Provider: Ren Green [facility] [place] General Stated complaint: upset stomach, diarrhea, nausea, headache Time Seen by Provider: 11/09/23 12:48 Related Data Home Medications ?Medication ?Instructions ?Recorded ?Confirmed lisinopril 20 mg tablet 20 mg PO DAILY Hypertension 12/13/19 11/09/23 ferrous sulfate 325 mg (65 mg 325 mg PO DAILY Supplement 06/19/21 11/09/23 iron) tablet venlafaxine 150 mg 150 mg PO DAILY Anxiety 06/19/21 11/09/23 capsule,extended release 24 hr cetirizine 10 mg tablet 10 mg PO DAILY allergies 07/06/23 07/06/23 Previous Rx's ?Medication ?Instructions ?Recorded benzonatate 100 mg capsule 100 mg PO TIDP PRN Cough #30 caps 11/09/23 ondansetron 4 mg disintegrating 4 mg PO Q8H PRN Nausea #12 tabs 11/09/23 tablet Allergies Allergy/AdvReac Type Severity Reaction Status Date / Time No Known Allergies Allergy Verified 07/06/23 08:20 [facility] Disclaimer: The information contained in this section may have been updated after the patient was seen, as this information can be updated by other users. Medical History (Updated 11/09/23 @ 13:36 by Ren Green APRN) Anemia Depression Anxiety Hyperlipemia Hypertension Social History Smoking Status: Never smoker alcohol intake: never substance use type: denies use current occupational status: employed Travel in the last 8 weeks: None housing: house current occupation: horse farm caffeine: Yes ROS Obtained: Yes All systems reviewed & no additional complaints except as documented Constitutional Constitutional: Reports chills and Reports fever(s) Eyes Eyes: Denies eye discharge ENT Ears, Nose, Mouth, and Throat: Reports as per HPI Cardiovascular Cardiovascular: Denies chest pain Respiratory Respiratory: Denies chest congestion and Reports cough Gastrointestinal Gastrointestingal: Reports nausea; Denies abdominal pain, constipation, cramping, diarrhea or vomiting Musculoskeletal Musculoskeletal: Denies arthralgias Integumentary/Breasts Skin/Breast: Denies rash Neurologic Neurologic: Denies paresthesias Physical Exam General General appearance: alert and in no apparent distress Eye Eye exam: Present normal appearance, PERRL and EOMI ENT ENT exam: Present mucous membranes moist and normal external ear exam Expanded ENT Exam External ear exam: Present normal external inspection TM/Canal exam: Bilateral TM: erythema and bulging Nose exam: Absent sinus tenderness Nasal speculum exam: Bilateral: normal Mouth exam: Present normal external inspection; Absent drooling Teeth exam: Present normal inspection Throat exam: Present tonsillar erythema and tonsillomegaly Neck Neck exam: Present n
[2023-11-09 13:45] VITALS: BP 162/95; PULSE 77; RESP 16; TEMP 36.8; O2SAT 100
== END 2023-11-09 13:46 | disposition home or self-care (01) ==
PROVIDERS: Emergency Provider Nurse Practitioner Family; PCP Internal Medicine Adolescent Medicine
DX: R51.9 Headache, unspecified (principal); R19.7 Diarrhea, unspecified; R11.0 Nausea; B34.9 Viral infection, unspecified
CPT/HCPCS: 87635; 99212; 99214; G0463

== ENCOUNTER 2024-01-06 16:08 | Outpatient (CLI) | payer OTHER, SELFPAY ==
--- NOTE | 2024-01-06 16:10 | MM_ITS ---
PROCEDURE INFORMATION: Exam: MG Bilateral Screening 3D Mammography Exam date and time: 01/06/2024 3:58 PM Age: 43 years old Clinical indication: Screening examination TECHNIQUE: Imaging protocol: Bilateral Screening tomosynthesis and 2D mammography including computer-aided detection (CAD) when performed. COMPARISON: MG MM DIG SCREENING MAMM BI W/CAD 11/11/2022 3:17 PM FINDINGS: MAMMOGRAPHY: Breast composition: There are scattered areas of fibroglandular density. Mass: No suspicious masses. Architectural distortion: None. Calcifications: No suspicious calcifications. Asymmetric density: None. Skin thickening: None. Axillary adenopathy: None. IMPRESSION: No mammographic evidence of malignancy. Annual screening is recommended unless otherwise clinically indicated. ASSESSMENT: BI-RADS Category 1: Negative.
== END 2024-01-06 23:59 | disposition home or self-care (01) ==
LOC: RAD 16:08
PROVIDERS: PCP Nurse Practitioner Family; Visit Provider Nurse Practitioner Family
DX: Z12.31 Encounter for screening mammogram for malignant neoplasm of breast (principal)
CPT/HCPCS: 77063; 77067

== ENCOUNTER 2025-01-18 16:00 | Outpatient (CLI) | payer OTHER, SELFPAY ==
--- OUTSIDE RECORDS SUMMARY | 2023-10-17 03:00 | XMS_ITS ---
Author Organization [facility] Address [address] [place] [address] Care Team Providers Care Employment Office Clerk Name Role Phone Jessica Hannah Unavailable [phone] Glory Buitrago Unavailable [phone] REASON FOR VISIT Annual Social History Sex Assigned At : Social History Observation Description Sex Assigned At Female Encounters Encounter Location Date Provider Diagnosis [facility]- [address] [facility] [address] [place] [address] 10/17/2023 Glory Buitrago Plan Of Treatment Next Appt Details Provider Name:Any Hair, 02/09/2025 09:00:00 AM, [address], [place], [address], Progress Notes * Cata DAHL KDOB:04/1980 (44 yo F)Acc No.[id number]:10/17/2023 Progress Note Patient: Tere Cata mg Provider: Taty BUITRAGO APRN :1980 A ge:43 Y S ex:Female Date:10/17/2023 Address:[address] [place] [address] Subjective: * Chief Complaints: * A nnual * Electronic signature of Glory Buitrago APRN on 01/18/2025 at 04:04 PM EST Sign off status: Pending Visit Status: R /S (Rescheduled) * Provider: Taty BUITRAGO APRN Date: 10/17/2023 Generated for Burt blum/Sylvia/Lea on: 03/20/2024 04:04 PM EST
--- OUTSIDE RECORDS SUMMARY | 2023-10-20 08:00 | XMS_ITS ---
Author Organization [facility] Address [address] [place] [address] Care Team Providers Care Owner Oral Surgeon Name Role Phone Jessica Hannah Unavailable [phone] Glory Buitrago Unavailable [phone] REASON FOR VISIT annual Social History Sex Assigned At : Social History Observation Description Sex Assigned At Female Encounters Encounter Location Date Provider Diagnosis [facility]- [address] [facility] [address] [place] [address] 10/20/2023 Glory Buitrago Plan Of Treatment Next Appt Details Provider Name:Any Hair, 02/09/2025 09:00:00 AM, [address], [place], [address], Progress Notes * Cata DAHL KDOB:04/1980 (44 yo F)Acc No.[id number]:10/20/2023 Progress Note Patient: Tere Cata mg Provider: Taty BUITRAGO APRN :1980 A ge:43 Y S ex:Female Date:10/20/2023 Address:[address] [place] [address] Subjective: * Chief Complaints: * A nnual * Electronic signature of Glory Buitrago APRN on 01/18/2025 at 04:03 PM EST Sign off status: Pending Visit Status: R /S (Rescheduled) * Provider: Taty BUITRAGO APRN Date: 10/20/2023 Generated for Burt blum/Sylvia/Lea on: 1 03/20/2024 04:03 PM EST
--- OUTSIDE RECORDS SUMMARY | 2023-10-24 08:00 | XMS_ITS ---
Author Organization [facility] Address [address] [place] [address] Care Team Providers Care Peripheral Equipment Operator Name Role Phone Jessica Hannah Unavailable [phone] Glory Buitrago Unavailable [phone] REASON FOR VISIT annual Social History Sex Assigned At : Social History Observation Description Sex Assigned At Female Encounters Encounter Location Date Provider Diagnosis [facility]- [address] [facility] [address] [place] [address] 10/24/2023 Glory Buitrago Plan Of Treatment Next Appt Details Provider Name:Any Hair, 02/09/2025 09:00:00 AM, [address], [place], [address], Progress Notes * Cata DAHL KDOB:04/1980 (44 yo F)Acc No.[id number]:10/24/2023 Progress Note Patient: Tere Cata mg Provider: Taty BUITRAGO APRN :1980 A ge:43 Y S ex:Female Date:10/24/2023 Address:[address] [place] [address] Subjective: * Chief Complaints: * A nnual * Electronic signature of Glory Buitrago APRN on 01/18/2025 at 04:04 PM EST Sign off status: Pending Visit Status: R /S (Rescheduled) * Provider: Taty BUITRAGO APRN Date: 10/24/2023 Generated for Burt blum/Sylvia/Lea on: 03/20/2024 04:04 PM EST
--- OUTSIDE RECORDS SUMMARY | 2024-06-19 16:30 | XMS_ITS ---
Author Organization [facility] Address [address] [facility] [address] [place] [address] Care Team Providers Care Clinic Supervisor Name Role Phone Merari Barr Primary Care Provider [phone] Geno Billingsley Unavailable [phone] Migration, Provider Unavailable Unavailable REASON FOR VISIT [facility] Con[facility] Encounter Medications Medication SIG (Take, Route, Frequency, Duration) Notes Start Date End Date Status Venlafaxine HCl ER 150 MG 1 cap(s) orally once a day; Duration: 30 days Active Ferrous Sulfate 325 (65 Fe) MG TAKE 1 TABLET BY MOUTH ONCE DAILY; Duration: 90 days Active Mirena (52 MG) 52 MG 1 EA BY INTRAUTERINE ADMINISTRATION ONCE *Please review and pick correct strength[facility]formulati [facility]. If intended option is not shown, discontinue and re-order from Quick Search* Active Lisinopril 20 MG 1 tab(s) orally once a day; Duration: 90 Active Cetirizine HCl 10 MG 2.5 mL orally once a day Active Vitamin B12 5000 MCG 1 TAB(S) ORALLY ONCE A DAY *Please review and pick correct strength-formulati on [facility] options. If intended option is not shown, discontinue and re-order from Quick Search* Active Encounters Encounter Location Date Provider Diagnosis [facility] [address] [place] [address] 06/19/2024 Provider Migration Plan Of Treatment Medication Medication Name Sig Start Date Stop Date Notes Venlafaxine HCl ER 150 MG 1 cap(s) orall y once a day; Duration: 30 days Ferrous Sulfate 325 (65 Fe) MG TAKE 1 TA BLET BY MOUTH ONCE DAILY; Duration: 90 days Lisinopril 20 MG 1 tab(s) orally once a day; Duration: 90 Next Appt Details Provider Name:Geno Molina, 01/24/2025 02:00:00 PM, [address] [place] [address], [address], Progress Notes * Cata DAHL KDOB:04/1980 (44 yo F)Acc No.[id number]:06/19/2024 Patient: Tere Cata SAUL Provider: Herman Murrieta :1980 A ge:43 Y S ex:Female Date:06/19/2024 Address:[address] [place], [place] [id number] Pcp:Merari Barr Subjective: * Chief Complaints: * 1 . Multum To Medispan Conversion Encounter. * Medical History: * Medications: T aking Cetirizine HCl 10 MG Tablet 2.5 mL orally once a day , Taking Mirena (52 MG) 52 MG DEVICE 1 EA BY INTRAUTERINE ADMINISTRATION ONCE , Notes to Pharmacist: *Please review and pick correct strength-formulation from [facility] options. If intended option is not shown, discontinue and re-order from Quick Search*, Taking Vitamin B12 5000 MCG TABLET, DISINTEGRATING 1 TAB(S) ORALLY ONCE A DAY , Notes to Pharmacist: *Please review and pick correct strength-formulation from [facility] options. If intended option is not shown, discontinue and re-order from Quick Search* Objective: * Vitals: Assessment: Plan: * Treatment: * * Electronic signature of Prov ider Migration on 01/18/2025 at 04:03 PM EST Sign off status: Pending * Provider: Herman Murrieta Date: 0 06/19/2024 Generated for Burt blum/Sylvia/Miracleitting on: 03/20/2024 04:03 PM EST
--- OUTSIDE RECORDS SUMMARY | 2024-10-29 09:00 | XMS_ITS ---
Author Organization [facility] Address [address] [place] [address] Care Team Providers Care Retirement Specialist Name Role Phone Merari Barr Primary Care Provider Geno Billingsley Unavailable [phone] REASON FOR VISIT med ck, BP check, discuss toleration of statin, weight loss. Encounters Encounter Location Date Provider Diagnosis [facility] [address] [address] 10/29/2024 Geno Billingsley Plan Of Treatment Next Appt Details Provider Name:Geno Molina, 01/24/2025 02:00:00 PM, [address], [address], Progress Notes * Cata DAHL KDOB:04/1980 (44 yo F)Acc No.[id number]:10/29/2024 Progress Notes Patient: Tere Cata SAUL Provider: Gabrielle Billingsley APRN :1980 A ge:44 Y S ex:Female Date:10/29/2024 Address:[address] [place] [id number] Pcp:Merari Barr Subjective: * Chief Complaints: * 1 . med ck, BP check, discuss toleration of statin, weight loss.. * Medical History: Objective: * Vitals: Assessment: Plan: * Treatment: * * Electronic signature of Monik Billingsley APRN on 01/18/2025 at 04:02 PM EST Sign off status: Pending * Provider: Gabrielle Billingsley APRN Date: 0 10/29/2024 Generated for Burt blum/Sylvia/Lea on: 1 03/20/2024 04:02 PM EST
--- OUTSIDE RECORDS SUMMARY | 2024-12-03 03:07 | XMS_ITS | Continuity of Care Document ---
Author Organization [facility] [employer] Phone Care Team Providers Care Lead Burner Supervisor Name Role Phone ALONA LIMON Surgeon ALONA LIMON Primary Attending ALONA LIMON Unavailable ALONA LIMON Admitting DORA MCGARRY Primary Care ALLERGIES AND ADVERSE REACTIONS ALLERGIES AND ADVERSE REACTIONS Code System Allergy Substance Adverse Reaction Date Reaction (Severity) Comment Status Reported By Updated By No Known Allergies [email or web address] on December 01, 2024 11:45:11 AM [facility] MEDICATIONS HOME MEDICATIONS Status RXNORM [facility] Medication Dose Route Frequency Dates Comments Reported By Updated By Active 610462 15366 91934 3 venlafaxine 150 mg Tablet, Extended Release 24 hr 0.0 ORAL Last Dose: [id number] on December 01, 2024 11:45:16 AM [facility] Active 13761 21473 9 ferrous sulfate 325 mg (65 mg iron) tablet 0.0 ORAL Last Dose: [email or web address] on December 01, 2024 11:45:16 AM [facility] Active 134622 79588 57114 1 rosuvastatin 10 mg tablet 0.0 ORAL Last Dose: [email or web address] on December 01, 2024 11:45:16 AM [facility] Active 257323 54428 28125 1 lisinopril 20 mg tablet 1.0 TAB ORAL Last Dose: [id number] on December 01, 2024 11:45:17 AM [facility] DISCHARGE MEDICATIONS Status RXNORM [facility] Medication Dose Route Frequency Dates Dis pense Data Comments Physician Updated By No Discharge Medication Info rmation Available INPATIENT MEDICATIONS Status RXNORM NDC Medication Dose Route Frequency Rat e Quantity Dates Indication Dispense Data Comments Physician Updated By No Inpatient Medication Info rmation Available SOCIAL HISTORY SOCIAL HISTORY - Smoking Status SNOMED-CT Social History Element Description Effective Dates Offered Cessation Comment Updated By [id number] Current Tobacco smoking status Never Smoked [email or web address] on December 01, 2024 11:46:03 AM UTC SOCIAL HISTORY - Gender Sex: Female SOCIAL HISTORY - Status : status i nformation is not available Intention in Next Year: intention information is not available SOCIAL HISTORY - Assessments Code System Description Status Date Value of Assessment Updated By Comment Assessment Information is no t available SOCIAL HISTORY - [place] Affiliation [place] information is not av ailable SOCIAL HISTORY - Legal Sex Legal Sex information is not available SOCIAL HISTORY - Sexual Behavior Sexual Orientation Gender Identity SNOMED-CT Description SNO MED -CT Description Activity Level No of Partners Partner Type UpdatedBy Information is not available SOCIAL HISTORY - Occupation Occupation information is no t available VITAL SIGNS PATIENT VITAL SIGNS This section displays the mo st recent value for each vital sign as of December 03, 2024 8:07:46 AM [place] Code Vital Sign Activity Date Result Updated By 8310-5 Body temperature December 01 11:40:23 AM UTC 98.5 [degF] 34512-9 Body weight Measured November 152024 11:42:22 AM UTC 119.0 kg (262.0 lb) [id number] on December 01, 2024 11:42:22 AM UTC 8462-4 Diastolic blood pressure December 01, 2024 11:40:23 AM UTC 84.0 mm[Hg] 8867-4 Heart rate December 01 11:40:23 AM UTC 75 /min 82801-0 Oxygen saturation in Arterial blood by Pulse oximetry December 01, 2024 11:40:23 AM UTC 99.0 % 9279-1 Respiratory rate December 01 11:40:23 AM UTC 18 /min 8480-6 Systolic blood pressure December 01, 2024 11:40:23 AM UTC 164.0 mm[Hg] PEDIATRIC GROWTH CHART - VITAL SIGNS This section displays Head C ircumference Percentile, Weight for Length Percentile and BMI Percentile Loinc Code Pediatric Measure Age (Months) Result Updat ed By No Pediatric Growth Chart Pe rcentile Information Available. HEALTH CONCERNS Problems Concern Status Health Concern problem infor mation not available. Smoking Status Status Years Used Consumed packs p er day Health Concern smoking histo ry information not available. Family History Concern Status Health Concern family histor y information not available. ENCOUNTERS ENCOUNTER INFORMATION Reason for Visit FINGER INJURY Admission December 01, 2024 11:31:00 AM [facility] [address] [address] Discharge December 01, 2024 12:07:00 PM [facility] DISCHARGED TO HOME OR SELF CARE ENCOUNTER DIAGNOSES Notes information is not pancho ilable. Code System Diagnosis Onset Date Diagnosis information is not available. ABSTRACT DIAGNOSES Code System Diagnosis Updated By Abatement Date S61.302A ICD10 UNSPECIFIED OPEN WOUND OF RIGHT MIDDLE FINGER WITH DAMAGE TO NAIL, INITIAL ENCOUNTER [id number] on December 03, 2024 8:06:47 AM UT M79.641 ICD10 PAIN IN RIGHT HAND [id number] o n December 03, 2024 8:06:47 AM UT S61.212A ICD10 LACERATION WITHO UT FOREIGN BODY OF RIGHT MIDDLE FINGER WITHOUT DAMAGE TO NAIL, INITIAL ENCOUNTER [id number] on December 03, 2024 8:06:47 AM UT I10 ICD10 ESSENTIAL (PRIMA RY) HYPERTENSION [id number] on December 03, 2024 8:06:47 AM UT E78.5 ICD10 HYPERLIPIDEMIA, UNSPECIFIED [id number] on December 03, 2024 8:06:47 AM UT F32.A ICD10 DEPRESSION, UNSPECIFIED [id number] on December 03, 2024 8:06:47 AM UT Z79.899 ICD10 OTHER [facility] (CURRENT) DRUG THERAPY [id number] on December 03, 2024 8:06:47 AM UT W26.8XXA ICD10 CONTACT WITH OTH ER SHARP OBJECT(S), NOT ELSEWHERE CLASSIFIED, INITIAL ENCOUNTER [id number] on December 03, 2024 8:06:47 AM UT Y92.219 ICD10 UNSPECIFIED SCHO OL THE PLACE OF OCCURRENCE OF THE EXTERNAL CAUSE [id number] on December 03, 2024 8:06:47 AM UT Y99.0 ICD10 CIVILIAN ACTIVIT Y DONE FOR INCOME OR PAY [id number] on December 03, 2024 8:06:47 AM [facility] CARE TEAM Care Lead Burner Supervisor Role ALONA LIMON Surgeon ALONA LIMON Primary Attending ALONA LIMON Referring ALONA LIMON Admitting DORA MCGARRY Primary Care CARE TEAM CARE middleware administrator Role on Team Location Telecom Status Start Date End Russel e Updated By ASHLY Kumar MD, MD Surgeon normal December 01, 2024 11:31:00 AM UTC December 01, 2024 12:07:00 PM UTC [id number] on December 03, 2024 8:07:28 AM UTC ASHLY Kumar MD, MD Referring normal December 01, 2024 11:49:40 AM UTC December 01, 2024 12:07:00 PM UTC [id number] on December 03, 2024 8:07:28 AM UTC ASHLY Kumar MD, MD Attending normal December 01, 2024 11:49:40 AM UTC December 01, 2024 12:07:00 PM UTC [id number] on December 03, 2024 8:07:28 AM UTC ASHLY Kumar MD, MD Admitting normal December 01, 2024 11:49:40 AM UTC December 01, 2024 12:07:00 PM UTC [id number] on December 03, 2024 8:07:28 AM UT MALGORZATA JOHN MD PCP normal December 01, 2024 11:31:21 AM UTC December 01, 2024 12:07:00 PM UTC [id number] on December 03, 2024 8:07:28 AM UTC
--- OUTSIDE RECORDS SUMMARY | 2024-12-21 06:15 | XMS_ITS ---
Author Organization [facility] Address [address] [place] [address] Care Team Providers Care Sheriff'S Detective Name Role Phone Jessica Hannah Unavailable [phone] Sun Wagoner Unavailable [phone] REASON FOR VISIT ANNUAL Social History Sex Assigned At : Social History Observation Description Sex Assigned At Female Encounters Encounter Location Date Provider Diagnosis [facility] [address] [place] [address] 12/21/2024 Sun Wagoner Plan Of Treatment Next Appt Details Provider Name:Any Hair, 02/09/2025 09:00:00 AM, [address], [place], [address], Progress Notes * Cata DAHL KDOB:04/1980 (44 yo F)Acc No.[id number]:12/21/2024 Progress Note Patient: Tere Cata mg Provider: Herman Wagoner APRN :1980 A ge:44 Y S ex:Female Date:12/21/2024 Address:[address] [place], [place] [address] Subjective: * Chief Complaints: * A NNUAL * Images * Urology Nurse's License 2024-12-13 * Electronic signature of Mariely Wagoner APRN on 01/18/2025 at 04:03 PM EST Sign off status: Pending Visit Status: R /S (Rescheduled) * Provider: Herman Wagoner APRN Date: Generated for Burt Last on: 03/20/2024 04:03 PM EST
--- OUTSIDE RECORDS SUMMARY | 2025-01-02 16:13 | XMS_ITS ---
Author Organization [facility] Address [address] [place] [address] Care Team Providers Care Geoscience Professor Name Role Phone Merari Barr Primary Care Provider [phone] Geno Billingsley [phone] REASON FOR VISIT New Referral Request Encounters Encounter Location Date Provider Diagnosis [facility] [address] [place] [address] 01/02/2025 Geno Billingsley Visit for screening mammogram Z12.31 Assessments Encounter Date Diagnosis (ICD Code) Assessment Notes Treatment Notes Treatment Clinical Notes Section Notes 01/02/2025 Visit for screening mammogram (ICD-10 - Z12.31) Plan Of Treatment Pending Test Test Name Order Date Mammogram : Bilateral 01/02/2025 Next Appt Details Provider Name:Geno Molina, 01/24/2025 02:00:00 PM, [address], [address], Progress Notes * Cata DAHL KDOB:04/1980 (44 yo F)Acc No.[id number]:01/02/2025 Patient: Tere GERANMOLCata TURK :1980 A ge:44 Y S ex:Female Address:[address] [place] [address], [address] Subjective: * Chief Complaints: * N ew Referral Request * Medical History: * Surgical History: * Hospitalization/Major Diagno stic Procedure: * Medications: Objective: * Vitals: * Physical Examination: Assessment: * Assessment: 1. V isit for screening mammogram - Z12.31 Plan: * Treatment: * Procedure Codes: * true * Date: Generated for Burt blum/Sylvia/Lea on: 03/20/2024 04:04 PM EST
--- NOTE | 2025-01-18 16:03 | MM_ITS ---
PROCEDURE INFORMATION: Exam: MG Bilateral Screening 3D Mammography Exam date and time: 01/18/2025 4:01 PM Age: 44 years old Clinical indication: Screening examination TECHNIQUE: Imaging protocol: Bilateral Screening tomosynthesis and 2D mammography including computer-aided detection (CAD) when performed. COMPARISON: 1. MG MM DIG SCREENING MAMM BI W/CAD 01/06/2024 3:58 PM 2. MG MM DIG SCREENING MAMM BI W/CAD 11/11/2022 3:17 PM FINDINGS: MAMMOGRAPHY: Breast composition: The breasts are almost entirely fatty. Mass: None. Architectural distortion: None. Calcifications: No suspicious calcifications. Asymmetric density: None. Skin thickening: None. Axillary adenopathy: None. IMPRESSION: No mammographic evidence of malignancy. Annual screening is recommended unless otherwise clinically indicated. ASSESSMENT: BI-RADS Category 1: Negative.
--- OUTSIDE RECORDS SUMMARY | 2025-01-18 16:03 | XMS_ITS | Patient Health Record ---
Author Organization [facility] Address [address] [facility] [address] [place] [address] Care Team Providers Care Gang Bore Operator Name Role Phone Jessica Hannah Unavailable [phone] Wanda Joseph Unavailable [phone] Glory Buitrago Unavailable [phone] Sun Wagoner Unavailable [phone] Allergies No Known Allergies Reason For Referral No Information Medications Medication SIG (Take, Route, Frequency, Duration) Notes Start Date End Date Status Mirena (52 MG) 20 MCG/DAY Intrauterine Device as directed Intrauterine Active Venlafaxine HCl ER A ctive Terbinafine HCl Acti ve Ferrous Sulfate Acti ve Estrella 0.25-35 MG-MCG Tablet TAKE 1 TABLET BY MOUTH EVERY DAY; Duration: 28 Active Lisinopril Active Social History Tobacco Use: Social History Observation Description Date Details (start date - stop date) Never Smoker NA - NA Sex Assigned At : Social History Observation Description Sex Assigned At Female Social History Drugs/Alcohol: Social Info Question Answer Notes Drugs Have you used drugs other than those for medical reasons in the past 12 months? No Alcohol Screen Did you have a drink containing alcohol in the past year? No Points 0 Interpretation Negative Tobacco Use: Social Info Question Answer Notes Tobacco Use/Smoking Are you a nonsmoker Additional Details Category Social Info Options Details Migrated Social History Drugs/Alcohol: de nies/denies Tobacco Use: denies Problems Problem Type SNOMED Code ICD Code Onset Dates Problem Status W/U Status Risk Notes Problem Female urinary stress incontinence (90576849) HARINI (stress urinary incontinence, female) (N39.3) Active confirmed Problem Abnormal cervical Papanicolaou smear with positive human papillomavirus deoxyribonucleic acid test (037346868) *Cervical low risk human papillomavirus (HPV) DNA test positive (Code also - for assoc. HPV (B97.7) (R87.820) 02/02/20 21 Active confirmed LGSIL Encounters Encounter Location Date [facility] [address] [facility] [address] [place] [address] 08/11/2024 Glory [facility] [address] [facility] [address] [place] [address] 12/12/2024 Wanda Joseph [facility] [address] [facility] [address] [place] [address] 12/20/2024 Sun Wagoner Plan Of Treatment Next Appt Details Provider Name:Any Hair, 02/09/2025 09:00:00 AM, [address], [place], [address], Insurance Providers Payer Name Payer Address Payer Phone Subscriber Number Group Number Insured Name Patient Relationship to Insured Coverage Start Date Coverage End Date [facility] [address] [place] [address] [id number] Cata Doan Self - patient is the insured 2 Medical (General) History Medical History History ICD Code Abnormal Pap Anxiety Bacterial Vaginosis Depression High Blood Pressure HPV Obesity Yeast Infections
--- OUTSIDE RECORDS SUMMARY | 2025-01-18 16:04 | XMS_ITS | Patient Health Record ---
Author Organization [facility] Address [address] [place] [address] Care Team Providers Care Mechanics Handyman Name Role Phone Merari Barr Primary Care Provider [phone] Geno Billingsley Unavailable [phone] Merari Kirkland Unavailable [phone] Migration, Provider Unavailable Unavailable Allergies Allergen (clinical drug ingredient) Drug/Non Drug Allergy documented on EMR Reaction Allergy Type Onset Date Status atorvastatin Atorvastatin rash Drug Allergy A ctive Results Component Value Reference Range Notes TSH W/REFLEX TO FT4 ([id number]) Reviewed date:08/24/2024 11:20:12 AM Interpretation: Performing Lab:[facility], [id number] Grayson Henry Notes/Report: NON-FASTING; NON-FASTING; NON-FASTING; NON-FASTING; NON-FAST FASTING:YES DIFFICULT DRAW. PATIENT ADVISED TO RETURN FOR CO FASTING: YES TSH W/REFLEX TO FT4 1.45 Ranges First trimester 0.26-2.66 Second trimester 0.55-2.73 Third trimester 0.43-2.91 Reference Range > or = 20 Years 0.40-4.50 VITAMIN B12 (927) Reviewed date:08/24/2024 11:20:12 AM Interpretation: Performing Lab:[facility] [id number], [id number] Grayson Henry Notes/Report: NON-FASTING; NON-FASTING; NON-FASTING; NON-FASTING; NON-FAST FASTING:YES DIFFICULT DRAW. PATIENT ADVISED TO RETURN FOR CO FASTING: YES VITAMIN B12 166 447-8339 pg/mL Please Note: Although the reference range for vitamin B12 is 200-1100 pg/mL, it has been reported that between 5 and 10% of patients with values between 200 and 400 pg/mL may experience neuropsychiatric and hematologic abnormalities due to occult B12 deficiency; less than 1% of patients with values above 400 pg/mL will have symptoms. HEMOGLOBIN A1c (496) Reviewed date:08/27/2024 03:51:18 PM Interpretation: Performing Lab:[facility], [id number] Grayson Henry Notes/Report: SPLIT 08/23/2024 FROM [id number] HEMOGLOBIN A1c 5.2 <5.7 % For the purpose of screening for the presence of diabetes: <5.7% Consistent with the absence of diabetes 5.7-6.4% Consistent with increased risk for diabetes (prediabetes) > or =6.5% Consistent with diabetes This assay result is consistent with a decreased risk of diabetes. Currently, no consensus exists regarding use of hemoglobin A1c for diagnosis of diabetes in children. According to [place] Diabetes Association (ADA) guidelines, hemoglobin A1c <7.0% represents optimal control in non- diabetic patients. Different metrics may apply to specific patient populations. Standards of Medical Care in Diabetes(ADA). CBC (INCLUDES DIFF/PLT) (639 9) Reviewed date:08/27/2024 03:51:17 PM Interpretation: Performing Lab:[facility] [id number], [id number] Grayson Henry Notes/Report: SPLIT 08/23/2024 FROM [id number] WHITE BLOOD CELL COUNT 8.0 3.8-10.8 Thousand/ uL RED BLOOD CELL COUNT 4.41 3.80-5.10 Million/uL HEMOGLOBIN 14.3 11.7-15.5 g/dL HEMATOCRIT 44.7 35.0-45.0 % MCV 101.4 80.0-100.0 fL MCH 32.4 27.0-33.0 pg MCHC 32.0 32.0-36.0 g/dL For adults, a slight decrease in the calculated MCHC value (in the range of 30 to 32 g/dL) is most likely not clinically significant; however, it should be interpreted with caution in correlation with other red cell parameters and the patient's clinical condition. RDW 13.7 11.0-15.0 % PLATELET COUNT 328 140-400 Thousand/uL MPV 9.7 7.5-12.5 fL ABSOLUTE NEUTROPHILS 4968 8973-2390 cells/uL ABSOLUTE LYMPHOCYTES 2440 850-3900 cells/uL ABSOLUTE MONOCYTES 592 200-950 cells/uL ABSOLUTE EOSINOPHILS 0 15-500 cells/uL ABSOLUTE BASOPHILS 0 0-200 cells/uL NEUTROPHILS 62.1 LYMPHOCYTES 30.5 MONOCYTES 7.4 EOSINOPHILS 0.0 BASOPHILS 0.0 COMPREHENSIVE METABOLIC PANE L (31115) Reviewed date:08/24/2024 11:20:12 AM Interpretation: Performing Lab:[facility], [facility] [address], [place]Busd[place] Grayson Henry Notes/Report: NON-FASTING; NON-FASTING; NON-FASTING; NON-FASTING; NON-FAST FASTING:YES DIFFICULT DRAW. PATIENT ADVISED TO RETURN FOR CO FASTING: YES GLUCOSE 89 65-99 mg/dL Fasting reference interval UREA NITROGEN (BUN) 13 7-25 mg/dL CREATININE 1.02 0.50-0.99 mg/dL EGFR 70 > OR = 60 mL/min/1.73m2 BUN/CREATININE RATIO 13 6-22 (calc) SODIUM 138 135-146 mmol/L POTASSIUM 4.2 3.5-5.3 mmol/L CHLORIDE 106 98-110 mmol/L CARBON DIOXIDE 24 20-32 mmol/L CALCIUM 9.1 8.6-10.2 mg/dL PROTEIN, TOTAL 7.0 6.1-8.1 g/dL ALBUMIN 4.3 3.6-5.1 g/dL GLOBULIN 2.7 1.9-3.7 g/dL (calc) ALBUMIN/GLOBULIN RATIO 1.6 1.0-2.5 (calc) BILIRUBIN, TOTAL 0.5 0.2-1.2 mg/dL ALKALINE PHOSPHATASE 87 31-125 U/L AST 13 10-30 U/L ALT 12 6-29 U/L LIPID PANEL, STANDARD (5730) Reviewed date:08/24/2024 11:20:12 AM Interpretation: Performing Lab:[facility], [facility] BlvdGil[facility] HealthcareOlucMB[address] Grayson Henry Notes/Report: NON-FASTING; NON-FASTING; NON-FASTING; NON-FASTING; NON-FAST FASTING:YES DIFFICULT DRAW. PATIENT ADVISED TO RETURN FOR CO FASTING: YES CHOLESTEROL, TOTAL 246 <200 mg/dL HDL CHOLESTEROL 60 > OR = 50 mg/dL TRIGLYCERIDES 75 <150 mg/dL LDL-CHOLESTEROL 168 Reference range: <100 Desirable range <100 mg/dL for primary prevention; <70 mg/dL for patients with CHD or diabetic patients with > or = 2 CHD risk factors. LDL-C is now calculated using the Arabella calculation, which is a validated novel method providing better accuracy than the Friedewald equation in the estimation of LDL-C. Danny SS et al. DORIS. 2013;310(19): 2766-6058 (http://education.Moodswing.com/faq/YGB301) CHOL/HDLC RATIO 4.1 <5.0 (calc) NON HDL CHOLESTEROL 186 <130 mg/dL (calc) For patients with diabetes plus 1 major ASCVD risk factor, treating to a non-HDL-C goal of <100 mg/dL (LDL-C of <70 mg/dL) is considered a therapeutic option. IRON, TIBC AND FERRITIN ASIYA Estrella (5616) Reviewed date:08/24/2024 11:20:11 AM Interpretation: Performing Lab:[facility] [id number] [facility] Gr[place] Henry Notes/Report: NON-FASTING; NON-FASTING; NON-FASTING; NON-FASTING; NON-FAST FASTING:YES DIFFICULT DRAW. PATIENT ADVISED TO RETURN FOR CO FASTING: YES IRON, TOTAL 95 40-190 mcg/dL IRON BINDING CAPACITY 285 250-450 mcg/dL (florinda c) % SATURATION 33 16-45 % (calc) FERRITIN 101 16-232 ng/mL Sleep Study Reviewed date:09/10/2024 02:12:11 PM Interpretation: Performing Lab: Notes/Report: Medications Medication SIG (Take, Route, Frequency, Duration) Notes Start Date End Date Status Cetirizine HCl 10 MG 2.5 mL orally once a day Active Ferrous Sulfate 325 (65 Fe) MG TAKE 1 TABLET BY MOUTH ONCE DAILY; Duration: 90 days Active Mirena (52 MG) 52 MG 1 EA BY INTRAUTERIN E ADMINISTRATION ONCE Active Lisinopril 20 MG 1 tab(s) orally once a day; Duration: 90 Active Cyanocobalamin 1000 MCG/ML 1 mL Injection intramuscular once weekly; Duration: 30 days Intramuscular injection once weekly x 4 weeks, then once a month x 2 months. 08/24/2024 Active Rosuvastatin Calcium 10 MG 1 tablet Oral ly at bedtime; Duration: 90 days 09/21/2024 Activ e Venlafaxine HCl ER 150 MG TAKE 1 CAPSULE BY MOUTH EVERY DAY; Duration: 30 Active Immunizations Vaccine Route Administration Date Status Comme nts Adacel (Tdap) IM Intramuscular 08/19/2012 Administered Boostrix IM Intramuscular 04/03/2018 Administered Hep A Adult 2 Dose Unknown 03/31/2018 Administered Hep A Adult 2 Dose IM Intramuscular 10/22/2018 Administere d Problems Problem Type SNOMED Code ICD Code Onset Dates Problem Status W/U Status Risk Notes Problem Visual disturbance (43930802) Visual disturbance NOS (368.9) Active confirmed Problem Morbid obesity (disorder) (509492306) Morbid (severe) obesity due to excess calories (E66.01) Active confirmed Problem Mixed hyperlipidemia (789151912) Mixed hyperlipidemia (E78.2) Active confirmed Problem Generalized anxiety disorder (85337124) Generalized anxiety disorder (F41.1) Active confirmed Problem Mixed anxiety and depressive disorder (361277535) Depression with anxiety (F41.8) Active confirmed Problem Body mass index 40+ - severely obese (192646293) BMI 45.0-49.9, adult (Z68.42) Active confirmed Problem Essential hypertension (66417112) Essential hypertension (I10) Active confirmed Problem Morbid obesity (460870744) Obesity, morbid, BMI 40.0-49.9 (E66.01) Active confirmed Problem Body mass index 40+ - morbidly obese (116334584) BMI 40.0-44.9, adult (Z68.41) Active confirmed Problem Non-rheumatic mitral regurgitation (591277982) Non-rheumatic mitral regurgitation (I34.0) Active confirmed Problem Insomnia (098914610) Insomnia, unspecified type (G47.00) Active confirmed Problem SI - Stress incontinence (64072559) Stress incontinence (N39.3) Active confirmed Problem Vitamin B12 deficiency (550505175) History of non anemic vitamin B12 deficiency (Z86.39) Active confirmed Problem History of endocrine disorder (280166469) History of hyperglycemia (Z86.39) Active confirmed Problem Daytime hypersomnia (53841274070595) Daytime hypersomnia (G47.19) Active confirmed Problem Microcytic hypochromic anemia (36450422) Microcytic hypochromic anemia (D50.9) Active confirmed Problem History of iron deficiency anemia (321471533) History of iron deficiency anemia (Z86.2) Active confirmed Problem Mixed incontinence (991321660) Urinary incontinence, mixed (N39.46) Active confirmed Problem Essential hypertension (47977749) Hypertension, unspecified type (I10) Active confirmed Problem History of iron deficiency (481384925) History of iron deficiency (Z86.39) Active confirmed Problem Body mass index 40+ - severely obese (019217695) Body mass index [BMI] 45.0-49.9, adult (Z68.42) Active confirmed Problem Body mass index 40+ - severely obese (072350424) Body mass index [BMI] 40.0-44.9, adult (Z68.41) Active confirmed Vital Signs Heart Rate 82 /min 11/01/2024 Temperature 98 degrees Fahrenheit 11/01/2024 Blood pressure diastolic 78 mm Hg 11/01/2024 Height 5 ft 5in in 11/01/2024 Blood pressure systolic 122 mm Hg 11/01/2024 Weight 270 lbs 11/01/2024 BMI 44.93 kg/m2 11/01/2024 Encounters Encounter Location Date Provider Diagnosis [facility] [address] [place] [address] 06/19/2024 Provider Migration [address] [address] 08/20/2024 Merari Kirkland Mixed hyperlipidemia E78.2 ; Routine medical exam Z00.00 ; Depression with anxiety F41.8 ; Obesity, morbid, BMI 40.0-49.9 E66.01 ; Encounter for weight loss counseling Z71.3 ; History of iron deficiency Z86.39 ; History of non anemic vitamin B12 deficiency Z86.39 ; Encounter for screening for diabetes mellitus Z13.1 ; Fatigue, unspecified type R53.83 ; Family history of diabetes mellitus Z83.3 ; Suspected sleep apnea R29.818 ; Hypertension, unspecified type I10 and Stress incontinence N39.3 [facility] [address] [address] 09/21/2024 Merari Kirkland Elevated blood pressure reading R03.0 and Mixed hyperlipidemia E78.2 [facility] [address] [address] 11/01/2024 Geno Billingsley Essential hypertensi on I10 ; BMI 40.0-44.9, adult Z68.41 and Mixed hyperlipidemia E78.2 [facility] [address] [address] 06/30/2024 Merari Courtneyence [facility] [address] [facility] [address] [place] [address] 08/17/2024 Geno PeñaEkaterinabea [facility] [address] [facility] [address] [place] [address] 08/24/2024 Merari Courtneyence [facility] [address] [facility] [address] [place] [address] 08/26/2024 Merari Kirkland Snoring R06.83 ; Daytime hypersomnia G47.19 and Morbid (severe) obesity due to excess calories E66.01 [facility] [address] [address] 09/03/2024 Merari Courtneyence [facility] [address] [facility] [address] [place] [address] 11/01/2024 Geno Billingsley Mixed hyperlipidemia E78.2 [facility] [address] [place] [address] 01/02/2025 Geno Billingsley Visit for screening mammogram Z12.31 Assessments Encounter Date Diagnosis (ICD Code) Assessment Notes Treatment Notes Treatment Clinical Notes Section Notes 08/20/2024 Mixed hyperlipidemia (ICD-10 - E78.2) I personally will review all labs once final. 08/20/2024 Routine medical exam (ICD-10 - Z00.00) I personally will review all labs once final. C-scope: no family hx of colon cancer, some constipation within the last year but helps with miralax and admits to not drinking much water, no bright red blood per rectum, hyperplastic polyp on colonoscopy by Dr. Lima in 2021 with plan of repeat colonoscopy at age 47. Mammogram: no family hx of breast cancer. Normal mammogram in December 2023. Patient will call to get her annual scheduled December 2024. Pap: UTD, every two years. Had IUD placed in 2022. Has pap scheduled with [facility] in October 2024. Dental: Sees twice a year. No issues. Eye: See's MD annually, no issues. Vaccine: TDap booster in 2018. 08/26/2024 Snoring (ICD-10 - R06.83) 11/01/2024 Essential hypertension (ICD-10 - I10) Blood pressure slightly above goal Discussed importance of exercise and heart healthy diet Recommend 30 min cardio 4 days a week and DASH diet If b/p remains elevated at FU in 3 months will increase lisinopril 11/01/2024 BMI 40.0-44.9, adult (ICD-10 - Z68.41) See plan above 11/01/2024 Mixed hyperlipidemia (ICD-10 - E78.2) 01/02/2025 Visit for screening mammogram (ICD-10 - Z12.31) 09/21/2024 Mixed hyperlipidemia (ICD-10 - E78.2) Stopped Atorvastatin. Start Rosuvastatin. Does not sound like traditional drug rash as she only had 3 pruritic erythematous lesions which per her photos had the appearance of bug bites. No red flag allergic symptoms so will start trial of Rosuvastin and follow-up in 6 weeks to trend her toleration and BP check. Patient voices understanding. 09/21/2024 Elevated blood pressure reading (ICD-10 - R03.0) BP slightly elevated, but much improved from previous visit. Will see back and check BP and discuss her toleration of Rosuvastatin. Reviewed s/s of elevated BP and to seek care if they develop. 11/01/2024 Mixed hyperlipidemia (ICD-10 - E78.2) Tolerating well. Low saturated fat DASH diet. Lipid panel at FU in 3 months 08/26/2024 Daytime hypersomnia (ICD-10 - G47.19) 08/20/2024 Depression with anxiety (ICD-10 - F41.8) Controlled, continue current regimen. 08/26/2024 Morbid (severe) obesity due to excess calories (ICD-10 - E66.01) 08/20/2024 Obesity, morbid, BMI 40.0-49.9 (ICD-10 - E66.01) I personally will review all labs once final. Long discussion about current BMI, discussed current exercise and diet - and discussed healthy alternatives. Health benefits of weight loss and follow up goals discussed. Follow-up in 4 weeks. 08/20/2024 Encounter for weight loss counseling (ICD-10 - Z71.3) I personally will review all labs once final. Long discussion about current BMI, discussed current exercise and diet - and discussed healthy alternatives. Health benefits of weight loss and follow up goals discussed. Follow-up in 4 weeks. 08/20/2024 History of iron deficiency (ICD-10 - Z86.39) Continue PO iron. Will re-check. 08/20/2024 History of non anemic vitamin B12 deficiency (ICD-10 - Z86.39) I personally will review all labs once final. 08/20/2024 Encounter for screening for diabetes mellitus (ICD-10 - Z13.1) I personally will review all labs once final. 08/20/2024 Fatigue, unspecified type (ICD-10 - R53.83) I personally will review all labs once final. 08/20/2024 Family history of diabetes mellitus (ICD-10 - Z83.3) I personally will review all labs once final. 08/20/2024 Suspected sleep apnea (ICD-10 - R29.818) I personally will review all labs once final. Home sleep study not a good valid test in 2022. Will repeat in house. Patient voices understanding and agrees with the plan of care above. 08/20/2024 Hypertension, unspecified type (ICD-10 - I10) BP slightly elevated than goal today, but not enough to change BP medication at this time. Start 30 minute walk daily. Follow-up in 4 weeks for re-check or sooner if needed. 08/20/2024 Stress incontinence (ICD-10 - N39.3) Pads prn used. Denies tamara hematuria, dysuria, back pain, abd pain. Chronic problem for patient failing several medications including Oxybutynin and Gemtesa. Strongly encouraged her to see Uro/BENCH JEWELER with [facility]. Patient declines wanting a referral at this time. Discussed if she changes her mind she can call office anytime and I will put the referral in. Patient voices understanding. Plan Of Treatment Pending Test Test Name Order Date Sleep Study 10/18/2022 Echocardiogram 07/24/2018 Physical Therapy 06/07/2019 H-CBC with AUTO DIFF 10/11/2013 H-CBC with AUTO DIFF 04/03/2016 H-IRON & TIBC 04/05/2016 H-VITAMIN B12 10/11/2013 H-FERRITIN 04/05/2016 H-CMP 10/11/2013 H-TSH 10/11/2013 H-VIT D, 25-HYDROXY 10/11/2013 H-DIARRHEA PANEL PCR 03/14/2015 M-Vitamin B12 05/29/2021 M-Iron and TIBC 05/29/2021 LIPID PANEL, STANDARD (7600) 10/18/2022 COMPREHENSIVE METABOLIC PANEL (77444) CBC (INCLUDES DIFF/PLT) (6399) VITAMIN B12 (927) 10/18/2022 TSH (899) 10/18/2022 VITAMIN D,25-OH,TOTAL,IA (09348) 023 BV/VAGINITIS PANEL DNA PROBE (88602) Next Appt Details Provider Name:Geno Molina, 01/24/2025 02:00:00 PM, [address], [address], Insurance Providers Payer Name Payer Address Payer Phone Subscriber Number Group Number Insured Name Patient Relationship to Insured Coverage Start Date Coverage End Date [facility] MEDICAID [address] [address] [place] [address] [id number] Cata Chavira Self - patient is the insured Medical (General) History Medical History History ICD Code depression Moderate mitral regurgitation- Echo 04/02 - cervical dysplasia - grade 1 on pap Surgical History Surgery Date(Month/Year)
== END 2025-01-18 23:59 | disposition home or self-care (01) ==
LOC: RAD 16:01
PROVIDERS: PCP Nurse Practitioner Family; Visit Provider Nurse Practitioner Family
DX: Z12.31 Encounter for screening mammogram for malignant neoplasm of breast (principal)
CPT/HCPCS: 77063; 77067